=== PATIENT | male | born 1960 | race Hispanic/Latino ===

== ENCOUNTER 2019-08-01 19:54 | Inpatient (IN) | payer OTHER ==
[~2019-08-01 19:54] MED LIST: ASPI-555 PO; CILO100T PO; FINA5TAB41 PO; LOVA40TA2 PO; METF-446 PO; METO25 PO; TAMS-1 PO
[2019-08-01] MEDS ORDERED: ASPIRIN 325 MG TABLET ONE (20:13)
[2019-08-01] MEDS ORDERED: ONDANSETRON HCL 4 MG/2 ML VIAL ONE (20:13)
[2019-08-01] MEDS ORDERED: MORPHINE SULFATE 4 MG/1ML SYG ONE (20:14)
[2019-08-01 20:27] LABS: BASOPHILS % (AUTO) 0.6 % (0.0-5.0); EOSINOPHILS % (AUTO) 3.9 % (0.0-8.0); HEMATOCRIT 40.6 % (42-54); LYMPHOCYTES % (AUTO) 33.1 % (21.0-51.0); MEAN CORPUSCULAR HEMOGLOBIN 28.5 pg (27.0-33.0); MEAN CORPUSCULAR HGB CONC 33.5 g/dL (32.0-36.0); MEAN CORPUSCULAR VOLUME 85.1 fL (79-99); MONOCYTES % (AUTO) 7.9 % (3.0-13.0); NEUTROPHILS % (AUTO) 54.1 % (40.0-77.0); PLATELET COUNT (AUTO) 258 K/uL (130-400); RED BLOOD CELL COUNT(AUTO) 4.77 MIL/uL (4.50-6.20); RED CELL DISTRIBUTION WIDTH 14.4 % (11.0-15.5); WHITE BLOOD COUNT (AUTO) 7.9 K/uL (4.8-10.8)
[2019-08-01 20:39] LABS: CREATININE 0.9 mg/dL (0.5-1.5); POTASSIUM 4.1 mmol/L (3.5-5.1)
[2019-08-01] MEDS ORDERED: SODIUM BICARB 50MEQ 50ML VIAL ONE (20:40)
[2019-08-01] MEDS ORDERED: IOHEXOL-350 75 ML VIAL IV ONE (20:40)
[2019-08-01] MEDS ORDERED: BIVALIRUDIN 250 MG/VIAL IV ONE (20:40)
[2019-08-01] MEDS ORDERED: NITROGLYCERIN 2 MG/VIAL VIAL IV ONE (20:40)
[2019-08-01] MEDS ORDERED: MIDAZOLAM HCL 1 MG/ML 2ML VIAL ONE (20:41)
[2019-08-01] MEDS ORDERED: FENTANYL CITRATE PF 50 MCG/1 ML 2ML VIAL ONE (20:41)
[2019-08-01 20:42] LABS: INR 0.93 (0.85-1.15); PARTIAL THROMBOPLASTIN TIME 25.8 SEC (26.3-35.5); PROTHROMBIN TIME 10.1 SEC (9.6-11.6)
[2019-08-01] MEDS ORDERED: LIDOCAINE HCL 2% 20ML ONE (20:43)
[2019-08-01 20:44] LABS: ALBUMIN 4.2 g/dL (3.5-5.0); BILIRUBIN,TOTAL 0.4 mg/dL (0.2-1.0); TOTAL PROTEIN, SERUM 7.9 g/dL (6.0-8.3)
[2019-08-01] MEDS ORDERED: KETOROLAC TROMETHAMINE 15MG/ML IV SCH (21:00)
[2019-08-01] MEDS ORDERED: KETOROLAC TROMETHAMINE 15MG/ML ONE (21:02)
[2019-08-01] MEDS ORDERED: HYDRALAZINE HCL 20 MG/ML VIAL IV PRN (21:30)
[2019-08-01] MEDS ORDERED: NITROGLYCERIN 0.4 MG SL TAB SL PRN (21:30)
[2019-08-01] MEDS ORDERED: ONDANSETRON HCL 4 MG/2 ML VIAL IV PRN (21:30)
[2019-08-01] MEDS ORDERED: LACTULOSE 20 GM/30 ML UDCUP PO PRN (21:30)
[2019-08-01] MEDS ORDERED: ACETAMINOPHEN 325 MG TAB PO PRN ×2 (21:30)
[2019-08-01 21:47] LABS: CHOLESTEROL 121 mg/dL (<200); HDL CHOLESTEROL 75 mg/dL (29-71); LDL DIRECT 71 mg/dL (0-99); TRIGLYCERIDES 103 mg/dL (30-200)
[2019-08-01 21:48] LABS: HEMOGLOBIN A1C 6.8 % (4.0-6.0)
[2019-08-01] MEDS ORDERED: NITROGLYCERIN 0.4 MG SL TAB SL ONE (21:53)
[2019-08-01] MEDS: MORPHINE SULFATE 2 MG/ML 1ML SYG IV PRN (22:59)
--- NOTE | 2019-08-01 23:00 | NUR ---
Received patient from ED at 2300 to 405. Patient continues to have chest pain, Dr. Diamond aware of pain and abnormal EKG from ED.
[2019-08-01 23:08] VITALS: BP 150/102
[2019-08-02] VITALS (10 sets, daily range): BP systolic 112–149; BP diastolic 72–99
[2019-08-02] MEDS: KETOROLAC TROMETHAMINE 15MG/ML IV PRN ×2 (00:40→08:19)
[2019-08-02] MEDS: MORPHINE SULFATE 2 MG/ML 1ML SYG IV PRN (00:41)
--- NOTE | 2019-08-02 02:10 | NUR ---
DOROTHY Owen LOIN TRIMMER contacted and informed of continuous chest pain continuing from ED. LOIN TRIMMER called for abnormal EKG changes. Cardiac panel drawn and will give results to Dr. Diamond when ready.
[2019-08-02 02:45] LABS: CREATINE KINASE, TOTAL 70 U/L (21-232); MYOGLOBIN 64 ng/mL (10-92); TROPONIN I < 0.04 ng/mL (0.00-0.06)
[2019-08-02] MEDS ORDERED: ISOS60TA4 PO (03:42)
[2019-08-02] MEDS ORDERED: RANO500T2 PO (03:42)
[2019-08-02] MEDS ORDERED: LINA5TAB PO (03:42)
--- NOTE | 2019-08-02 05:09 | NUR ---
Dr. rizvi notified of abnormal changes in EKG, normal troponin level and constant chest pain.
[2019-08-02] MEDS: INSULIN HUMULIN R 100 UNIT/ML 3ML SQ SCH ×4 (07:03→21:00)
[2019-08-02] MEDS: METOPROLOL TARTRATE 25 MG TAB PO SCH ×2 (08:19→20:43)
[2019-08-02] MEDS: FAMOTIDINE 20MG TAB 20 MG TAB PO SCH ×2 (08:19→20:42)
[2019-08-02] MEDS ORDERED: ASPIRIN 81MG TAB.CHEW PO SCH (09:00)
[2019-08-02 09:46] LABS: BASOPHILS % (AUTO) 0.5 % (0.0-5.0); EOSINOPHILS % (AUTO) 3.1 % (0.0-8.0); HEMATOCRIT 37.8 % (42-54); LYMPHOCYTES % (AUTO) 30.4 % (21.0-51.0); MEAN CORPUSCULAR HEMOGLOBIN 28.1 pg (27.0-33.0); MEAN CORPUSCULAR HGB CONC 32.5 g/dL (32.0-36.0); MEAN CORPUSCULAR VOLUME 86.5 fL (79-99); MONOCYTES % (AUTO) 8.2 % (3.0-13.0); NEUTROPHILS % (AUTO) 57.3 % (40.0-77.0); PLATELET COUNT (AUTO) 243 K/uL (130-400); RED BLOOD CELL COUNT(AUTO) 4.37 MIL/uL (4.50-6.20); RED CELL DISTRIBUTION WIDTH 14.5 % (11.0-15.5); WHITE BLOOD COUNT (AUTO) 7.6 K/uL (4.8-10.8)
[2019-08-02 10:01] LABS: POTASSIUM 4.1 mmol/L (3.5-5.1)
[2019-08-02] MEDS ORDERED: SODIUM CHLORIDE 0.9% 500ML 500 ML IV SCH (10:43)
[2019-08-02] MEDS ORDERED: NITROGLYCERIN 1GM/1 INCH PACKET TD SCH (12:15)
[2019-08-02] MEDS ORDERED: NITROGLYCERIN 2 MG/VIAL VIAL IV ONE (13:19)
[2019-08-02] MEDS ORDERED: FENTANYL CITRATE PF 50 MCG/1 ML 2ML VIAL ONE (13:19)
[2019-08-02] MEDS ORDERED: BIVALIRUDIN 250 MG/VIAL IV ONE (13:19)
[2019-08-02] MEDS ORDERED: IOHEXOL-350 75 ML VIAL IV ONE (13:19)
[2019-08-02] MEDS ORDERED: LIDOCAINE HCL 2% 20ML ONE (13:19)
[2019-08-02] MEDS ORDERED: IOHEXOL 350 MG/ML 100ML INFUS..BTL IV ONE (13:19)
[2019-08-02] MEDS ORDERED: MIDAZOLAM HCL 1 MG/ML 2ML VIAL ONE (13:19)
[2019-08-02] MEDS ORDERED: SODIUM BICARB 50MEQ 50ML VIAL ONE (13:47)
[2019-08-02] MEDS ORDERED: TICAGRELOR 90 MG TABLET ONE (14:55)
[2019-08-02] MEDS ORDERED: ASPIRIN 325MG EC TAB 325 MG TABLET.DR PO ONE (14:55)
[2019-08-02] MEDS ORDERED: LISINOPRIL 2.5 MG TABLET PO SCH (16:15)
--- NOTE | 2019-08-02 16:30 | NUR ---
cm note pt resides with spouse, independent with adls and self care. no dme. no services. dc plan is back home. no dc needs. Addendum: 08/02/19 at 1632 by ELA ULRICH CM Amended: Links added.
[2019-08-02] MEDS: TICAGRELOR 90 MG TABLET PO SCH (20:42)
[2019-08-02] MEDS ORDERED: ATORVASTATIN CALCIUM 40 MG TABLET PO SCH (21:00)
[2019-08-03 00:36] VITALS: BP 109/73
[2019-08-03 04:00] VITALS: BP 91/67
[2019-08-03 04:14] LABS: HEMATOCRIT 37.6 % (42-54); MEAN CORPUSCULAR HEMOGLOBIN 28.7 pg (27.0-33.0); MEAN CORPUSCULAR HGB CONC 33.2 g/dL (32.0-36.0); MEAN CORPUSCULAR VOLUME 86.4 fL (79-99); PLATELET COUNT (AUTO) 242 K/uL (130-400); RED BLOOD CELL COUNT(AUTO) 4.35 MIL/uL (4.50-6.20); RED CELL DISTRIBUTION WIDTH 14.5 % (11.0-15.5); WHITE BLOOD COUNT (AUTO) 8.9 K/uL (4.8-10.8)
[2019-08-03 04:37] LABS: CREATININE 0.8 mg/dL (0.5-1.5); POTASSIUM 3.9 mmol/L (3.5-5.1)
[2019-08-03 04:43] LABS: TROPONIN I 19.85 ng/mL (0.00-0.06)
[2019-08-03 06:09] LABS: BAND NEUTROPHILS % (MANUAL) 5 % (0-2); EOSINOPHILS % (MANUAL) 7 % (1-6); LYMPHOCYTES % (MANUAL) 18 % (22-44); MAN.DIFF COMMENT-IMPRESSION MANUAL DIFFERENTIAL; MONOCYTES % (MANUAL) 6 % (2-9); PLATELET MORPHOLOGY COMMENT ADEQUATE; REACTIVE LYMPHOCYTES 1 % (0-0); SEGMENTED NEUTROPHILS % 63 % (40-70)
[2019-08-03] MEDS: INSULIN HUMULIN R 100 UNIT/ML 3ML SQ SCH (06:27)
[2019-08-03 07:58] VITALS: BP 96/71
[2019-08-03] MEDS ORDERED: ASPIRIN 81MG TAB.CHEW PO SCH (09:00)
[2019-08-03] MEDS: METOPROLOL TARTRATE 25 MG TAB PO SCH ×2 (09:00→10:50)
[2019-08-03] MEDS: LISINOPRIL 2.5 MG TABLET PO SCH ×3 (09:00→10:58)
[2019-08-03] MEDS ORDERED: JARDIANCE 10 MG MISC SCH (09:00)
[2019-08-03] MEDS: TICAGRELOR 90 MG TABLET PO SCH (09:21)
[2019-08-03] MEDS: FAMOTIDINE 20MG TAB 20 MG TAB PO SCH (09:24)
--- NOTE | 2019-08-03 10:51 | NUR ---
DR. BARAKAT AWARE OF LOW BP, ADMINISTER MEDS? STATES YES JUST GIVE THEM EVEN THOUGH BP IS 96/71 P 68. SO THAT IF HE DROPS WE CAN MONITOR.
[2019-08-03] MEDS ORDERED: LISI2.5T2 PO (10:55)
[2019-08-03] MEDS ORDERED: ATOR40TA69 PO (10:55)
[2019-08-03] MEDS ORDERED: TICA90TA PO (10:55)
[2019-08-03] MEDS ORDERED: METO25 PO (10:55)
[2019-08-03 11:41] VITALS: BP 116/73
[2019-08-03 15:53] VITALS: BP 110/69
--- NOTE | 2019-08-03 15:55 | NUR ---
PT D/C HOME USING TEACH BACK TECHNIQUE RE; HOME MEDS, NEW MEDS, S/S TO WATCH FOR AND WHEN TO CALL MD OR 911. FOLLOW UP WITH DR. SORIANO ON 08/17/19 @ 1:30 PM OFFICE NUMBER [phone] FOLLOW UP WITH YOUR PRIMARY DOCTOR IN 2-4 DAYS FOR TRANSITION OF CARE. Please refer to medication reconciliation sheet for full details on, medications, doses, and frequency of new medications. Also, discontinued, and continued home medications. Medication reconciliation sheet was, completed by Dr. Antonio Flower Jr.> DISCHARGE FOLLOW UP: <Patient will be discharged to home to follow-up with his primary care, physician, Dr. Merino, within 3 to 5 days for transition visit., Retinal Angiographer follow-ups: Dr. Abel Soriano as scheduled. IF SHORTNESS OF BREATH OR CHEST PAIN DOES NOT RESOLVE WITH REST CALL 911. IF YOU NOTICE BLEEDING FROM YOU RIGHT INGUINAL AREA OR GROIN, APPLY DIRECT PRESSURE AND CALL 911. IV OUT INTACT, NO BLEEDING, AAOX3, DENIES ANY NEEDS OR QUESTION AT THIS TIME. RIGHT GROIN SITE SOFT NO TENDERNESS NOR SWELLING. TELE REMOVED BY ANTHONY BRINK.
== END 2019-08-03 16:30 | disposition home or self-care (01) | DRG 246 ==
LOC: EDH 19:54 → EDHIP 20:14 → OBSVTOIN 20:14 → 4BH 22:48
PROVIDERS: ADMIT Hospitalist; ATTEND Hospitalist
PROC: 027034Z Dilation of Coronary Artery, One Artery with Drug-eluting Intraluminal Device, Percutaneous Approach (ICD-10-PCS; principal; 2019-08-02)
PROC: 4A023N7 Measurement of Cardiac Sampling and Pressure, Left Heart, Percutaneous Approach (ICD-10-PCS; 2019-08-02)
PROC: B2111ZZ Fluoroscopy of Multiple Coronary Arteries using Low Osmolar Contrast (ICD-10-PCS; 2019-08-02)
PROC: B2151ZZ Fluoroscopy of Left Heart using Low Osmolar Contrast (ICD-10-PCS; 2019-08-02)
PROC: B2181ZZ Fluoroscopy of Left Internal Mammary Bypass Graft using Low Osmolar Contrast (ICD-10-PCS; 2019-08-02)
DX: I21.4 Non-ST elevation (NSTEMI) myocardial infarction (principal); I50.43 Acute on chronic combined systolic (congestive) and diastolic (congestive) heart failure; I25.110 Atherosclerotic heart disease of native coronary artery with unstable angina pectoris; I11.0 Hypertensive heart disease with heart failure; I34.0 Nonrheumatic mitral (valve) insufficiency; E78.5 Hyperlipidemia, unspecified; E11.51 Type 2 diabetes mellitus with diabetic peripheral angiopathy without gangrene; Z79.899 Other long term (current) drug therapy; Z79.02 Long term (current) use of antithrombotics/antiplatelets; Z82.49 Family history of ischemic heart disease and other diseases of the circulatory system; Z83.3 Family history of diabetes mellitus
CPT/HCPCS: 36415; 71045; 80048; 80053; 80061; 82550; 82948; 83036; 83874; 83880; 84484; 85025; 85610; 85730; 93005; 93459; 99156; 99157; C1725; C1760; C1769; C1887; C1894; C9600; G0378; J0583; J1644; J1885; J2250; J2270; J2405; J3010; J3490; J7040; Q9967

== ENCOUNTER 2022-07-12 05:44 | Emergency (ER) | payer OTHER ==
[~2022-07-12] VITALS: Ht 165.1 cm; Wt 65.8 kg
[~2022-07-12 05:44] MED LIST changes: -ASPI-555 PO; +ASPI-556 PO; +ATOR40TA69 PO; -CILO100T PO; +LINA5TAB PO; +LISI2.5T13 PO; -LOVA40TA2 PO; +TICA90TA PO
[2022-07-12] MEDS ORDERED: ONDANSETRON 4MG INJ IVP ONE (06:00)
[2022-07-12] MEDS ORDERED: 0.9%NACL 1000ML 1,000 ML IV ONE (06:00)
[2022-07-12 06:27] LABS: BASOPHILS % (AUTO) 0.2 % (0.0-5.0); EOSINOPHILS % (AUTO) 1.8 % (0.0-8.0); HEMATOCRIT 37.4 % (42-54); LYMPHOCYTES % (AUTO) 20.1 % (21.0-51.0); MEAN CORPUSCULAR HEMOGLOBIN 26.6 pg (27.0-33.0); MEAN CORPUSCULAR HGB CONC 32.6 g/dL (32.0-36.0); MEAN CORPUSCULAR VOLUME 81.7 fL (79-99); MONOCYTES % (AUTO) 4.7 % (3.0-13.0); PLATELET COUNT (AUTO) 258 K/uL (130-400); RED BLOOD CELL COUNT(AUTO) 4.58 MIL/uL (4.50-6.20); RED CELL DISTRIBUTION WIDTH 15.3 % (11.0-15.5); WHITE BLOOD COUNT (AUTO) 8.7 K/uL (4.8-10.8)
[2022-07-12 06:38] LABS: APPEARANCE,URINE CLEAR (CLEAR); BILIRUBIN,URINE NEGATIVE (NEGATIVE); COLOR,URINE COLORLESS (YELLOW); GLUCOSE, URINE (UA) NEGATIVE (NEGATIVE); KETONES,URINE NEGATIVE (NEGATIVE); LEUKOCYTE ESTERASE ,URINE NEGATIVE Leu/uL (NEGATIVE); NITRATE,URINE NEGATIVE (NEGATIVE); OCCULT BLOOD,URINE NEGATIVE (NEGATIVE); PH,URINE 6.5 (5.0-8.0); PROTEIN,URINE NEGATIVE (NEGATIVE); UROBILINOGEN,URINE 0.2 mg/dL (0.2-1.0)
[2022-07-12 06:39] LABS: ALBUMIN 2.9 g/dL (3.5-5.0); CREATININE 0.8 mg/dL (0.5-1.5); POTASSIUM 3.1 mmol/L (3.5-5.1)
[2022-07-12] MEDS ORDERED: GLIP5POW MC (09:23)
[2022-07-12] MEDS ORDERED: ROSU20TA31 PO (09:23)
[2022-07-12] MEDS ORDERED: CLOP75TA32 PO (09:23)
[2022-07-12] MEDS ORDERED: CILO100T3 PO (09:23)
[2022-07-12] MEDS ORDERED: AMIO200T68 PO (09:23)
[2022-07-12] MEDS ORDERED: CARV12.511 PO (09:23)
[2022-07-12] MEDS ORDERED: NITR0.4T50 SL (09:23)
[2022-07-12] MEDS ORDERED: AMIT25TA9 PO (09:23)
[2022-07-12] MEDS ORDERED: POTASSIUM BICARB/CIT AC 25 MEQ TABLET.EFF PO SCH (10:30)
[2022-07-12 10:35] VITALS: BP 105/65
[2022-07-12] MEDS ORDERED: SULF1TAB89 PO (12:18)
[2022-07-12] MEDS ORDERED: LEVOFLOXACIN 500 MG TABLET PO SCH (12:30)
== END 2022-07-12 12:30 | disposition home or self-care (01) ==
LOC: EDH 05:44
DX: R19.7 Diarrhea, unspecified (principal); E87.1 Hypo-osmolality and hyponatremia; E87.6 Hypokalemia; R79.89 Other specified abnormal findings of blood chemistry; K82.4 Cholesterolosis of gallbladder; J84.10 Pulmonary fibrosis, unspecified; I10 Essential (primary) hypertension; E11.9 Type 2 diabetes mellitus without complications; Z20.822 Contact with and (suspected) exposure to COVID-19; Z79.899 Other long term (current) drug therapy; Z79.82 Long term (current) use of aspirin; Z79.84 Long term (current) use of oral hypoglycemic drugs
CPT/HCPCS: 99285; 96374; 76705; 71045; 96361; 87635; 82270; 80053; 83880; 83690; 85025; 87804 ×2; 87324; 81003; 36415; 83630; C9803; J7030; J2405